=== PATIENT | female | born 1985 | race Caucasian/White ===

== ENCOUNTER → 2018-08-18 | Outpatient (CLI) | payer OTHER ==
--- NOTE | 2018-08-18 10:53 | REPMRS ---
Patient History The patient states she has not had a clinical breast exam in over a year. Family history of breast cancer at age 32 in maternal aunt, breast cancer in maternal grandmother. The Ale Pastor lifetime risk for breast cancer is 19.8%. Digital Mammo Screening Bilat: August 18, 2018 - Exam #: [id number] Bilateral CC and MLO view(s) were taken. Technologist: Nellie Torrez, Technologist No prior studies available for comparison. FINDINGS: The breast tissue is heterogeneously dense. This may lower the sensitivity of mammography. There is no evidence of cancer on this mammogram. Assessment: BI-RADS/ACR category 2 mammogram. Benign Findings. Recommendation Routine screening mammogram of both breasts in 1 year (for women over age 40). This mammogram was interpreted with the aid of an FDA-approved computer-aided dectection system. Electronically Signed By: Akira Sanders MD 08/18/18 0444
== END ==
LOC: M RAD 09:05
PROVIDERS: ATTEND Student in an Organized Health Care Education/Training Program
DX: Z12.31 Encounter for screening mammogram for malignant neoplasm of breast (principal)